=== PATIENT | male | born 1930 | race Caucasian/White ===

== ENCOUNTER 2018-12-14 19:15 | Emergency (ER) | payer MEDICARE, OTHER ==
[2018-12-14] MEDS ORDERED: LIDOCAINE 1%/EPINEPHRINE INJ 20 ML VIAL INJ ONE (19:41)
--- NOTE | 2018-12-14 19:41 | ER Document Report ---
ED General - General Stated Complaint: FALL Time Seen by Provider: 12/14/18 19:26 Primary Care Provider: MICHELLE RG MD [ACTIVE STAFF] - Follow up in 3-5 days Notes: Patient is a 88-year-old male that presents to the emergency department for chief complaint of fall and head injury. Patient reports that he was taking a few steps backward with his walker and went to pivot and his foot got caught in the wheel, and he fell onto his right side, hitting the right side of his head on the counter. Denies loss of consciousness, denies any headache, or neck pain at this time. Denies any numbness, weakness or tingling or visual changes. He denies being on any blood thinners. Denies any other complaints at this time. He denies having any pain. He reports that he does not recall the last time he had a tetanus vaccination. Past Medical History: Parkinson's disease Past Surgical History: Denies any recent or pertinent surgical history Social History: Denies tobacco, alcohol or drug use. Family History: Reviewed and noncontributory for presenting illness Allergies: Reviewed, see documented allergy list. REVIEW OF SYSTEMS: Other than noted above, the 12 point review of systems was reviewed with the patient and were negative, all pertinent findings are included in the HPI. PHYSICAL EXAMINATION: Vital signs reviewed, nursing noted reviewed. GENERAL: Elderly male, no acute distress HEAD: There is a right-sided scalp laceration, measuring approximately 2.6 cm in length, slight oozing of blood, no depressed skull fracture, no other head injuries appreciated. EYES: Eyes appear normal, extraocular movements intact, sclera anicteric, conjunctiva are normal. ENT: nares patent, oropharynx clear without exudates. Moist mucous membranes. NECK: Normal range of motion, supple without lymphadenopathy, no midline tendern ess, no pain with range of motion. LUNGS: Breath sounds clear to auscultation bilaterally and equal. No wheezes rales or rhonchi. HEART: Regular rate and rhythm without murmurs ABDOMEN: Soft, nontender, normoactive bowel sounds. No rebound, guarding, or rigidity. No masses appreciated. EXTREMITIES: Nontender, good range of motion, no pitting or edema. NEUROLOGICAL: No focal neurological deficits. Moves all extremities spontaneously Motor and sensory grossly intact on exam. PSYCH: Normal mood, normal affect. SKIN: Warm, Dry, normal turgor, no rashes or lesions noted on exposed skin TRAVEL OUTSIDE OF THE [place] IN LAST 30 DAYS: No - Related Data Allergies/Adverse Reactions: Penicillins Allergy (Verified 12/14/18 20:14) Past Medical History - Social History Smoking Status: Never Smoker Family History: Reviewed & Not Pertinent Physical Exam - Vital signs Vitals: Temp Pulse Resp BP Pulse Ox 97.6 F 66 18 145/68 H 96 12/14/18 19:47 12/14/18 19:47 12/14/18 19:47 12/14/18 19:47 12/14/18 19:47 Course - Re-evaluation Re-evalutation: Patient seen and examined vital signs reviewed. Laboratory data and/or imaging were ordered as appropriate for the patient's presenting symptoms and complaint, with consideration of any critical or life threatening conditions that may be associated with their obtained history and exam as noted above. Patient was treated with suture repair of his scalp wound, with 7 chris, patient tolerated well Results were reviewed when available and demonstrated negative CT imaging of the head and cervical spine The patient was re-evaluated and was stable and improved Evaluation was most consistent with scalp laceration, closed head injury, fall, patient advised to return in 7 days to have his chris removed. Results were discussed with the patient at this point, after careful consideration I feel that that patient can be discharged from the emergency department, the patient was educated treatments and reasons to return to the emergency department based on their presumed diagnosis as noted above, they were advised to followup with a primary care physician in 2-3 days. Patient was agreeable to plan of care. *Note is created using voice recognition software and may contain spelling, syntax or grammatical errors. Cervical Spine CT 12/14/18 19:42 IMPRESSION: No acute fracture. Severe multilevel cervical spondylosis with mild retrolisthesis of C3 upon C4 and C4 upon C5. TECHNICAL DOCUMENTATION: Quality ID # 436: Final reports with documentation of one or more dose reduction techniques (e.g., Automated exposure control, adjustment of the mA and/or kV according to patient size, use of iterative reconstruction technique) copyright 2011 [employer]- All Rights Reserved Head CT 12/14/18 19:42 IMPRESSION: No acute intracranial abnormality. Mild chronic microvascular ischemic change and generalized atrophy. TECHNICAL DOCUMENTATION: Quality ID # 436: Final reports with documentation of one or more dose reduction techniques (e.g., Automated exposure control, adjustment of the mA and/or kV according to patient size, use of iterative reconstruction technique) copyright 2011 [employer]- All Rights Reserved - Vital Signs Vital signs: Temp Pulse Resp BP Pulse Ox 97.7 F 63 17 171/74 H 97 12/14/18 21:25 12/14/18 21:25 12/14/18 21:25 12/14/18 21:25 12/14/18 21:25 Procedures - Laceration/Wound Repair Right Head Wound length (cm): 2.6 Wound's Depth, Shape: Other - into subcutantous tissues Anesthetic type: 1% Lidocaine w/epi Volume Anesthetic (mLs): 3 Wound explored: Clean Irrigated w/ Saline (mLs): 200 Wound Repaired With: Chris Number of Sutures: 7 Complications: No Discharge - Discharge Clinical Impression: Scalp laceration Qualifiers: Encounter type: initial encounter Qualified Code(s): S01.01XA - Laceration without foreign body of scalp, initial encounter Closed head injury Qualifiers: Encounter type: initial encounter Qualified Code(s): S09.90XA - Unspecified injury of head, initial encounter Fall Qualifiers: Encounter type: initial encounter Qualified Code(s): W19.XXXA - Unspecified fall, initial encounter Condition: Stable Disposition: HOME, SELF-CARE Instructions: Laceration Care ([facility]), Tetanus Immunization Given ([facility]) Additional Instructions: Please keep the wound on your head clean and dry, you may wash normally, but do not scrub your hair, you can use normal shampoo. Pat dry. Please return to the emergency department in 7 days to have your chris removed, they can also be removed at your primary care office if you are able to go to them. Referrals: MICHELLE RG MD [ACTIVE STAFF] - Follow up in 3-5 days
[2018-12-14] MEDS ORDERED: DIPH/PERTUSS(ACELL)/TETANUS VAC/PF 0.5 ML SYR (>=10YO) IM ONE (20:01)
--- NOTE | 2018-12-14 20:21 | RADIOLOGY REPORT (SQ) ---
EXAM DESCRIPTION: CT HEAD WITHOUT IV CONTRAST COMPLETED DATE/TME: 12/14/2018 19:42 CLINICAL HISTORY: 88 years, Male, fall, head injury COMPARISON: None. TECHNIQUE: Noncontrast CT of the head was performed. Coronal and sagittal reformations were created. Images stored on PACS. All CT scanners at this facility use dose modulation, iterative reconstruction, and/or weight based dosing when appropriate to reduce radiation dose to as low as reasonably achievable (ALARA). [facility]: Dose Right [facility]: CareDose [facility]: Dose Right [facility]: Teradose 4D [facility]: [employer] LIMITATIONS: None. FINDINGS: Mild periventricular and patchy subcortical white matter low attenuation is noted. Brain parenchyma is otherwise normal in attenuation. No acute intracranial hemorrhage, mass effect, or extra-axial fluid is seen. Ventricles and sulcal spaces are mildly enlarged. Globes and orbits show no acute abnormality. Paranasal sinuses and mastoid air cells are clear. There are no depressed skull fractures. Calcifications are evident about the parasellar carotid arteries. IMPRESSION: No acute intracranial abnormality. Mild chronic microvascular ischemic change and generalized atrophy. TECHNICAL DOCUMENTATION: Quality ID # 436: Final reports with documentation of one or more dose reduction techniques (e.g., Automated exposure control, adjustment of the mA and/or kV according to patient size, use of iterative reconstruction technique) copyright 2011 [employer]- All Rights Reserved
--- NOTE | 2018-12-14 20:38 | RADIOLOGY REPORT (SQ) ---
EXAM DESCRIPTION: CT CERVICAL SPINE WITHOUT IV CONTRAST COMPLETED DATE/TME: 12/14/2018 19:42 CLINICAL HISTORY: 88 years, Male, fall, head injury COMPARISON: None. TECHNIQUE: Noncontrast CT of the cervical spine was performed. Coronal and sagittal reformations were created. Images stored on PACS. All CT scanners at this facility use dose modulation, iterative reconstruction, and/or weight based dosing when appropriate to reduce radiation dose to as low as reasonably achievable (ALARA). [facility]: Dose Right [facility]: CareDose [facility]: Dose Right [facility]: Teradose 4D [facility]: [employer] LIMITATIONS: None. FINDINGS: Limited evaluation of the posterior fossa structures reveals no suspicious abnormality Occipital condyles are normal. Lateral masses of C1 and C2 align properly. Base and tip of the dens are intact. Craniocervical alignment is maintained. Visualized is mild retrolisthesis of C3 upon C4. Otherwise, severe multilevel intervertebral disc space narrowing is noted throughout the cervical spine, most pronounced spanning C3-C6 where there is severe intervertebral disc space narrowing and anterior/posterior endplate spurring. No acute fracture is identified. Concomitant right uncovertebral joint hypertrophy at C5-C6 contributes to severe right neural foraminal stenosis. Additional right uncovertebral joint hypertrophy at C4-C5 contributes to moderate neural foraminal stenosis. Visualized lung apices are clear. Paravertebral soft tissues show no suspicious findings. Calcifications are evident about the carotid vasculature on the right. IMPRESSION: No acute fracture. Severe multilevel cervical spondylosis with mild retrolisthesis of C3 upon C4 and C4 upon C5. TECHNICAL DOCUMENTATION: Quality ID # 436: Final reports with documentation of one or more dose reduction techniques (e.g., Automated exposure control, adjustment of the mA and/or kV according to patient size, use of iterative reconstruction technique) copyright 2010 [employer]- All Rights Reserved
[2018-12-14 21:33] VITALS: BP 171/74
== END 2018-12-14 21:32 | disposition home or self-care (01) ==
LOC: ER 19:15
PROC: 0HQ0XZZ Repair Scalp Skin, External Approach (ICD-10-PCS; principal; 2018-12-14)
DX: S01.01XA Laceration without foreign body of scalp, initial encounter (principal); S09.90XA Unspecified injury of head, initial encounter; W18.30XA Fall on same level, unspecified, initial encounter; Y93.9 Activity, unspecified; Y92.9 Unspecified place or not applicable; Y99.9 Unspecified external cause status; G20 Parkinson's disease; Z88.0 Allergy status to penicillin; Z23 Encounter for immunization
CPT/HCPCS: 99284; 90471; 12002; 70450; 72125; 90715; J3490

== ENCOUNTER → 2019-05-12 | Outpatient (CLI) | payer MEDICARE, OTHER ==
--- NOTE | 2019-05-12 11:08 | RADIOLOGY REPORT (SQ) ---
EXAM DESCRIPTION: SACRUM AND COCCYX; L SPINE W/FLEX/EXT; T SPINE AP/LAT COMPLETED DATE/TIME: 05/12/2019 10:55 am REASON FOR STUDY: M46.1 Sacroiliities, not elsewhere classified; M54.5 Lowbackpain; M54.6Pain COMPARISON: None. FINDINGS: Two view thoracic spine: Osteopenia and multilevel degenerative disc disease with slight spurring. No significant malalignment. No evidence of fracture or overt bone lesion. Normal soft t issues. Five view lumbosacral spine including obliques: Convex left mild scoliosis. No listhesis. Osteopen ic. Multilevel disc disease and facet arthropathy. No fracture or pars defect. No worrisome bone l esion. Soft tissues unremarkable. Three views sacrum and coccyx: Osteopenic. No fracture or bone lesion. No ankylosis or erosions in the SI joints. Hips show evidence of mild DJD. TECHNICAL DOCUMENTATION: JOB ID: [id number] Reading location - IP/workstation name: [email or web address]
--- NOTE | 2019-05-12 11:08 | RADIOLOGY REPORT (SQ) ---
EXAM DESCRIPTION: SACRUM AND COCCYX; L SPINE W/FLEX/EXT; T SPINE AP/LAT COMPLETED DATE/TIME: 05/12/2019 10:55 am REASON FOR STUDY: M46.1 Sacroiliities, not elsewhere classified; M54.5 Lowbackpain; M54.6Pain COMPARISON: None. FINDINGS: Two view thoracic spine: Osteopenia and multilevel degenerative disc disease with slight spurring. No significant malalignment. No evidence of fracture or overt bone lesion. Normal soft t issues. Five view lumbosacral spine including obliques: Convex left mild scoliosis. No listhesis. Osteopen ic. Multilevel disc disease and facet arthropathy. No fracture or pars defect. No worrisome bone l esion. Soft tissues unremarkable. Three views sacrum and coccyx: Osteopenic. No fracture or bone lesion. No ankylosis or erosions in the SI joints. Hips show evidence of mild DJD. TECHNICAL DOCUMENTATION: JOB ID: [id number] Reading location - IP/workstation name: [email or web address]
--- NOTE | 2019-05-12 11:08 | RADIOLOGY REPORT (SQ) ---
EXAM DESCRIPTION: SACRUM AND COCCYX; L SPINE W/FLEX/EXT; T SPINE AP/LAT COMPLETED DATE/TIME: 05/12/2019 10:55 am REASON FOR STUDY: M46.1 Sacroiliities, not elsewhere classified; M54.5 Lowbackpain; M54.6Pain COMPARISON: None. FINDINGS: Two view thoracic spine: Osteopenia and multilevel degenerative disc disease with slight spurring. No significant malalignment. No evidence of fracture or overt bone lesion. Normal soft t issues. Five view lumbosacral spine including obliques: Convex left mild scoliosis. No listhesis. Osteopen ic. Multilevel disc disease and facet arthropathy. No fracture or pars defect. No worrisome bone l esion. Soft tissues unremarkable. Three views sacrum and coccyx: Osteopenic. No fracture or bone lesion. No ankylosis or erosions in the SI joints. Hips show evidence of mild DJD. TECHNICAL DOCUMENTATION: JOB ID: [id number] Reading location - IP/workstation name: [email or web address]
== END ==
LOC: RAD 09:46
PROVIDERS: ATTEND Physician Assistant Medical
DX: M46.1 Sacroiliitis, not elsewhere classified (principal); M54.5 Low back pain; M16.0 Bilateral primary osteoarthritis of hip; M51.34 Other intervertebral disc degeneration, thoracic region
CPT/HCPCS: 72070; 72114; 72220

== ENCOUNTER 2019-05-25 09:57 | Emergency (ER) | payer MEDICARE, OTHER ==
[2019-05-25 10:15] LABS: ABSOLUTE BASOPHILS # (AUTO) 0.1 10^3/uL (0.0-0.2); ABSOLUTE LYMPHOCYTES (AUTO) 0.7 10^3/uL (0.5-4.7); ABSOLUTE MONOCYTES (AUTO) 0.6 10^3/uL (0.1-1.4); ABSOLUTE NEUT (AUTO) 5.9 10^3/uL (1.7-8.2); BASOPHILS % (AUTO) 0.8 % (0-2); EOSINOPHILS % (AUTO) 0.5 % (0-6); HEMATOCRIT 42.1 % (37.9-51.0); HEMOGLOBIN 14.3 g/dL (13.5-17.0); LYMPHOCYTES % (AUTO) 9.7 % (13-45); MEAN CORPUSCULAR HEMOGLOBIN 31.6 pg (27.0-33.4); MEAN CORPUSCULAR HGB CONC 33.9 g/dL (32.0-36.0); MEAN CORPUSCULAR VOLUME 93 fl (80-97); MONOCYTES % (AUTO) 7.7 % (3-13); PLATELET COUNT 298 10^3/uL (150-450); RED BLOOD COUNT 4.52 10^6/uL (4.35-5.55); RED CELL DISTRIBUTION WIDTH 14.2 % (11.5-14.0); SEGMENTED NEUTROPHILS % (AUTO) 81.3 % (42-78); TOTAL CELLS COUNTED % (AUTO) 100 %; WHITE BLOOD COUNT 7.2 10^3/uL (4.0-10.5)
[2019-05-25 10:33] LABS: INTERNATIONAL RATION (INR) 1.23; PROTHROMBIN TIME 15.6 SEC (11.4-15.4)
[2019-05-25 10:35] LABS: ALBUMIN 4.1 g/dL (3.5-5.0); ALKALINE PHOSPHATASE 82 U/L (38-126); ANION GAP 9 (5-19); ASPARTATE AMINO TRANSFERASE 23 U/L (17-59); BILIRUBIN,DIRECT 0.1 mg/dL (0.0-0.4); BILIRUBIN,TOTAL 0.7 mg/dL (0.2-1.3); BLOOD UREA NITROGEN 33 mg/dL (7-20); CALCIUM 9.8 mg/dL (8.4-10.2); CARBON DIOXIDE 29 mmol/L (22-30); CHLORIDE 106 mmol/L (98-107); GLUCOSE 98 mg/dL (75-110); POTASSIUM 4.6 mmol/L (3.6-5.0)
--- NOTE | 2019-05-25 10:48 | RADIOLOGY REPORT (SQ) ---
EXAM DESCRIPTION: CT HEAD WITHOUT COMPLETED DATE/TIME: 05/25/2019 10:31 am REASON FOR STUDY: fall with head laceration COMPARISON: CT brain 12/14/2018 TECHNIQUE: Axial images acquired through the brain without intravenous contrast. Images reviewed wi th bone, brain and subdural windows. Additional sagittal and coronal reconstructions were generated. Images stored on PACS. All CT scanners at this facility use dose modulation, iterative reconstruction, and/or weight based d osing when appropriate to reduce radiation dose to as low as reasonably achievable (ALARA). [facility]: Dose Right [facility]: CareDose [facility]: Dose Right [facility]: Teradose 4D [facility]: [employer] RADIATION DOSE: CT Rad equipment meets quality standard of care and radiation dose reduction techniq ues were employed. CTDIvol: 53.2 mGy. DLP: 1070 mGy-cm. mGy. LIMITATIONS: Motion artifact through this study FINDINGS: Motion artifact throughout the study. On images without motion, there is no gross CT evid ence of acute large territory ischemic change, acute intracranial hemorrhage, mass effect, or midline shift. IMPRESSION: Motion artifact. No gross acute findings EVIDENCE OF ACUTE STROKE: NO. COMMENT: Quality ID # 436: Final reports with documentation of one or more dose reduction techniques (e.g., Automated exposure control, adjustment of the mA and/or kV according to patient size, use of iterative reconstruction technique) TECHNICAL DOCUMENTATION: JOB ID: [id number] [employer]- All Rights Reserved Reading location - IP/workstation name: [email or web address]
--- NOTE | 2019-05-25 10:51 | RADIOLOGY REPORT (SQ) ---
EXAM DESCRIPTION: CT CERVICAL SPINE WITHOUT COMPLETED DATE/TIME: 05/25/2019 10:31 am REASON FOR STUDY: fall COMPARISON: CT cervical spine 12/14/2018 TECHNIQUE: Axial images acquired through the cervical spine without intravenous contrast. Images re viewed with lung, soft tissue and bone windows. Reconstructed coronal and sagittal MPR images review ed. Images stored on PACS. All CT scanners at this facility use dose modulation, iterative reconstruction, and/or weight based d osing when appropriate to reduce radiation dose to as low as reasonably achievable (ALARA). [facility]: Dose Right [facility]: CareDose [facility]: Dose Right [facility]: Teradose 4D [facility]: [employer] RADIATION DOSE: CT Rad equipment meets quality standard of care and radiation dose reduction techniq ues were employed. CTDIvol: 12.2 mGy. DLP: 285 mGy-cm. mGy. LIMITATIONS: None. FINDINGS: ALIGNMENT: Anatomic. MINERALIZATION: Normal. VERTEBRAL BODIES: No fractures or dislocation. DISCS: Multilevel disc space narrowing with osteophytes. FACETS, LATERAL MASSES, POSTERIOR ELEMENTS: Facet arthropathy. No fractures. No dislocation. No ac sandrine findings. HARDWARE: None in the spine. VISUALIZED RIBS: No fractures. LUNG APICES AND SOFT TISSUES: No significant or acute findings. OTHER: No other significant finding. IMPRESSION: CHRONIC DEGENERATIVE CHANGES. NO ACUTE FINDINGS. TECHNICAL DOCUMENTATION: JOB ID: [id number] Quality ID # [id number]: Final reports with documentation of one or more dose reduction techniques (e.g., Au tomated exposure control, adjustment of the mA and/or kV according to patient size, use of iterative reconstruction technique) 2010 [email or web address]- All Rights Reserved Reading location - IP/workstation name: [facility]
--- NOTE | 2019-05-25 11:06 | RADIOLOGY REPORT (SQ) ---
EXAM DESCRIPTION: HIP RIGHT AP/LATERAL COMPLETED DATE/TIME: 05/25/2019 10:48 am REASON FOR STUDY: fall with head lac and right hip tenderness COMPARISON: None. NUMBER OF VIEWS: Two views. TECHNIQUE: AP pelvis and additional frog-leg view of the right hip. LIMITATIONS: None. FINDINGS: MINERALIZATION: Normal. RIGHT HIP: No fracture or dislocation. No worrisome bone lesions. LEFT HIP: No fracture or dislocation. No worrisome bone lesions. PUBIS AND ISCHIUM: No fracture. PELVIS: No fracture. SACRUM: No fracture or dislocation. No worrisome bone lesions. LOWER LUMBAR SPINE: Disc space loss of height SOFT TISSUES: No findings. OTHER: No other significant finding. IMPRESSION: NEGATIVE STUDY OF THE RIGHT HIP. NO RADIOGRAPHIC EVIDENCE OF ACUTE INJURY. TECHNICAL DOCUMENTATION: JOB ID: [id number] [employer]- All Rights Reserved Reading location - IP/workstation name: [facility]
[2019-05-25] MEDS ORDERED: LIDOCAINE 1%/EPINEPHRINE INJ 20 ML VIAL INJ ONE (11:16)
--- NOTE | 2019-05-25 12:27 | ER Document Report ---
Entered by TORY GOMEZ SCRIBE 05/25/19 1116 Acting as scribe for:SAUD VINCENT MD ED Fall - General Chief Complaint: Fall Injury Stated Complaint: FALL/HIP INJURY Time Seen by Provider: 05/25/19 11:07 Primary Care Provider: NAOMI RAZA MD [Primary Care Provider] - Follow up as needed Mode of Arrival: Medic Information source: Patient, Relative Notes: 88-year-old male that presents to the emergency department today for complaints of a fall just prior to arrival. Patient states he had just stood up to put his belt on when the fall occurred. Patient states he "fell flat on his face". Relative at bedside states the patient has been having frequent falls over the last few days. Patient complains of back pain which is chronic, bilateral hip pain, and lacerations to his face and nose. Patient has a cough but he states this is his chronic cough. C-collar in place. Pertinent PMHx/PSHx: On pain management for chronic back pain. Parkinson's. Chronic cough. PCP: Dr. Naomi Raza TRAVEL OUTSIDE OF THE [place] IN LAST 30 DAYS: No - Related data Allergies/Adverse Reactions: Penicillins Allergy (Verified 12/23/18 07:10) Past Medical History - General Information source: Relative, [facility] Records - Social History Smoking Status: Former Smoker Frequency of alcohol use: None Drug Abuse: None Lives with: Family Family History: Reviewed & Not Pertinent Patient has suicidal ideation: No Patient has homicidal ideation: No - Past Medical History Cardiac Medical History: Reports: Hx Hypercholesterolemia, Hx Hypertension Musculoskeletal Medical History: Reports Hx Arthritis Surgical Hx: Negative Review of Systems - Review of Systems Constitutional: See HPI, Other - Fall EENT: No symptoms reported Cardiovascular: No symptoms reported Respiratory: See HPI, Cough Gastrointestinal: No symptoms reported Genitourinary: No symptoms reported Male Genitourinary: No symptoms reported Musculoskeletal: See HPI, Back pain, Joint pain Skin: See HPI, Lesions Hematologic/Lymphatic: No symptoms reported Neurological/Psychological: No symptoms reported -: Yes All other systems reviewed and negative Physical Exam - Vital signs Vitals: Temp Pulse Resp BP Pulse Ox 97.6 F 63 18 153/89 H 92 05/25/19 10:05 05/25/19 10:05 05/25/19 10:05 05/25/19 10:05 05/25/19 10:05 - Notes Notes: Physical Exam: General: Alert, appears at baseline according to family. HEENT: Normocephalic. PERRL. Extraocular movements intact. Oropharynx clear. Multiple abrasions and lacerations, see repair procedure note and skin exam. Neck: Supple. Non-tender. Collar removed after negative CT scan obtained. Respiratory: No respiratory distress. Rhonchi with forced cough. Ribs are not tender to palpate. Cardiovascular: Regular rate and rhythm. Abdominal: Normal Inspection. Non-tender. No distension. Normal Bowel Sounds. Back: No gross abnormalities. Generally tender with palpation which is chronic. The patient points to his right posterior iliac crest region as the area that he hurt when he fell. Extremities: Moves all four extremities. Upper extremities: Normal inspection. Normal ROM. Lower extremities: Normal inspection. Trace edema on the right, none on the left. Normal ROM. Palpating and manipulating the hips is not tender. Neurological: Normal cognition. AAOx4. Normal speech. Psychological: Normal affect. Normal Mood. Skin: 2 cm irregular crushtype laceration to the right medial supraorbital area. There is a 2 cm laceration over the right lateral portion of the zygomatic arch. There are two 1cm longitudinal nose lacerations over the proximal anterior nose. Course - Re-evaluation Re-evalutation: 05/25/19 12:30 PROCEDURE: The right supraorbital and zygomatic lacerations were prepped with Shur- Clens. They were anesthetized with a total of 3 mL's 1% lidocaine with epi local. Each wound was minimally debrided. Each wound was irrigated with 20 mL's normal saline via syringe and 25-gauge needle for pressure. The forehead wound was closed with 7 simple 5-0 Ethilon sutures. The zygomatic arch laceration was closed with 4 simple 5-0 Ethilon sutures. The nose was closed with Steri-Strips by the PCT. - Vital Signs Vital signs: Temp Pulse Resp BP Pulse Ox 97.6 F 63 18 153/89 H 92 05/25/19 10:05 05/25/19 10:05 05/25/19 10:05 05/25/19 10:05 05/25/19 10:05 - Laboratory Result Diagrams: 05/25/19 10:05 05/25/19 10:05 Laboratory results interpreted by me: 05/25/19 05/25/19 05/25/19 10:05 10:05 10:05 RDW 14.2 H Lymph % (Auto) 9.7 L Seg Neutrophils % 81.3 H PT 15.6 H BUN 33 H Creatinine 1.27 H Est GFR (MDRD) Non-Af 54 L - Diagnostic Test Radiology reviewed: Image reviewed, Reports reviewed - CT scan of the head and n rahul show chronic changes with nothing acute. X-rays of the hips do not show fractures, but does show chronic degenerative changes. Discharge - Discharge Clinical Impression: Frequent falls Fall Qualifiers: Encounter type: initial encounter Qualified Code(s): W19.XXXA - Unspecified fall, initial encounter Laceration of forehead Qualifiers: Encounter type: initial encounter Qualified Code(s): S01.81XA - Laceration without foreign body of other part of head, initial encounter Facial laceration Qualifiers: Encounter type: initial encounter Qualified Code(s): S01.81XA - Laceration without foreign body of other part of head, initial encounter Chronic back pain Qualifiers: Back pain location: thoracic back pain Back pain laterality: midline Qualified Code(s): M54.6 - Pain in thoracic spine Condition: Stable Disposition: HOME, SELF-CARE Additional Instructions: Facial Laceration A laceration on the face usually heals quickly. Our treatment goal will be to avoid an unsightly scar or stitch-amin. Your cut has been closed with the best techniques to avoid scarring, but a great deal depends on how well you protect the laceration -- and on your inherited tendency to scar. As facial cuts are usually caused by a blunt injury, it's usually best to rest for a day to avoid swelling. Do not allow any bumping or rubbing of the area. Keep the stitches dry. Follow the treatment plan the doctor has discu ssed with you and DO NOT DELAY getting the stitches out. Once stitches are removed, continue to protect the area from trauma and sunlight (use a sunscreen) for about six months. If any signs of infection occur (swelling, redness, increasing tenderness, red streaks, tender lumps in the neck or near the ear on the side of the laceration, or fever), see the doctor immediately. Use ice packs on the forehead and face laceration to help reduce swelling. Do not allow the Steri-Strips on the nose to get wet. Keep the sutured wounds clean and dressed with bacitracin ointment. Return in 1 week to have the sutures removed. Return sooner if any signs of infection. RETURN TO THE EMERGENCY ROOM IF ANY NEW OR WORSENING SYMPTOMS. Referrals: NAOMI RAZA MD [Primary Care Provider] - Follow up as needed Scribe Attestation: 05/25/19 12:35 I personally performed the services described in the documentation, reviewed and edited the documentation which was dictated to the scribe in my presence, and it accurately records my words and actions. I personally performed the services described in the documentation, reviewed and edited the documentation which was dictated to the scribe in my presence, and it accurately records my words and actions.
[2019-05-25] MEDS ORDERED: OXYCODONE-ACETAMINOPHEN 5-325 MG TABLET PO ONE (13:29)
[2019-05-25 13:47] VITALS: BP 134/75
== END 2019-05-25 13:57 | disposition home or self-care (01) ==
LOC: ER 09:57
DX: S79.912A Unspecified injury of left hip, initial encounter (principal); S01.81XA Laceration without foreign body of other part of head, initial encounter; M54.6 Pain in thoracic spine; R05 Cough; W19.XXXA Unspecified fall, initial encounter; E78.00 Pure hypercholesterolemia, unspecified; I10 Essential (primary) hypertension; G20 Parkinson's disease; Z91.81 History of falling
CPT/HCPCS: 36415; 85025; 85610; 80053; 73502; 70450; 72125; 12013; J3490; A9270; 99284

== ENCOUNTER 2019-06-01 14:02 | Emergency (ER) | payer MEDICARE, OTHER ==
--- NOTE | 2019-06-01 14:24 | ER Document Report ---
ED Medical Screen (RME) - General Chief Complaint: Low Back Pain Stated Complaint: BACK PAIN Time Seen by Provider: 06/01/19 14:16 Primary Care Provider: NAOMI DURAN MD [Primary Care Provider] - Follow up as needed Mode of Arrival: Medic Information source: Relative Notes: 88-year-old male presents to ED for complaint of increasing low back pain. Son and fianc are at the bedside and stated he is not safe to be at home anymore. States he is falling all the time. States that he is complaining of pain in his lower back and is not able to walk. He states he is not able to care for himself and needs to be in a facility where someone will take care of him. They state first he needs to be checked it to see if his current infection somewhere. Patient is alert oriented and answering questions appropriately. He states he is ready to go into a facility if there is one available in a while to get him in there. I have greeted and performed a rapid initial assessment of this patient. A comprehensive ED assessment and evaluation of the patient, analysis of test results and completion of medical decision making process will be conducted by an additional ED providers. TRAVEL OUTSIDE OF THE [place] IN LAST 30 DAYS: No - Related Data Allergies/Adverse Reactions: Penicillins Allergy (Verified 12/23/18 07:10) Past Medical History - Past Medical History Cardiac Medical History: Reports: Hx Hypercholesterolemia, Hx Hypertension Renal/ Medical History: Denies: Hx Peritoneal Dialysis Musculoskeltal Medical History: Reports Hx Arthritis Doctor's Discharge - Discharge Referrals: NAOMI DURAN MD [Primary Care Provider] - Follow up as needed
[2019-06-01 15:45] LABS: HEMATOCRIT 39.9 % (37.9-51.0); HEMOGLOBIN 13.8 g/dL (13.5-17.0); MEAN CORPUSCULAR HEMOGLOBIN 32.1 pg (27.0-33.4); MEAN CORPUSCULAR HGB CONC 34.5 g/dL (32.0-36.0); MEAN CORPUSCULAR VOLUME 93 fl (80-97); PLATELET COUNT 261 10^3/uL (150-450); RED BLOOD COUNT 4.29 10^6/uL (4.35-5.55); RED CELL DISTRIBUTION WIDTH 13.8 % (11.5-14.0); WHITE BLOOD COUNT 11.7 10^3/uL (4.0-10.5)
[2019-06-01 16:02] LABS: ALBUMIN 3.7 g/dL (3.5-5.0); ALKALINE PHOSPHATASE 86 U/L (38-126); ANION GAP 7 (5-19); ASPARTATE AMINO TRANSFERASE 33 U/L (17-59); BILIRUBIN,DIRECT 0.1 mg/dL (0.0-0.4); BILIRUBIN,TOTAL 0.8 mg/dL (0.2-1.3); BLOOD UREA NITROGEN 34 mg/dL (7-20); CALCIUM 9.7 mg/dL (8.4-10.2); CARBON DIOXIDE 29 mmol/L (22-30); CHLORIDE 106 mmol/L (98-107); GLUCOSE 105 mg/dL (75-110); POTASSIUM 4.5 mmol/L (3.6-5.0); TOTAL PROTEIN 6.4 g/dL (6.3-8.2)
[2019-06-01 16:13] LABS: ABSOLUTE LYMPHOCYTES# (MANUAL) 0.7 10^3/uL (0.5-4.7); ABSOLUTE MONOCYTES # (MANUAL) 0.8 10^3/uL (0.1-1.4); BASOPHILS % (MANUAL) 0 % (0-2); EOSINOPHILS % (MANUAL) 0 % (0-6); LYMPHOCYTES % (MANUAL) 6 % (13-45); MONOCYTES % (MANUAL) 7 % (3-13); SEGMENTED NEUTROPHILS % (MAN) 87 % (42-78); TOTAL CELLS COUNTED 100
[2019-06-01 16:14] LABS: PLATELET COMMENT ADEQUATE
--- NOTE | 2019-06-01 16:38 | ER Document Report ---
ED General - General Chief Complaint: Low Back Pain Stated Complaint: BACK PAIN Time Seen by Provider: 06/01/19 14:16 Primary Care Provider: NAOMI DURAN MD [Primary Care Provider] - Follow up as needed Mode of Arrival: Medic TRAVEL OUTSIDE OF THE [place] IN LAST 30 DAYS: No - HPI Notes: 58-year-old white male who has a reported diagnosis of Parkinson's disease since about 2 years ago, for which he has been on antiparkinsonian meds for that time, hyperlipidemia no history of hypertension, chronic low back pain prior pain management patient but not more recently on any opioids for a while prior signs fianc he was only getting injections in his low back and the last opiate of any sort was a while ago and it was just Tylenol 3. But he comes in today with family for fairly marketed decline in his baseline functioning in the last weeks. He has had a number of falls during this. The very last on 1116 a few days ago for which he had required sutures here in our ED on his forehead and cheek but had negative musculoskeletal and CT head and C-spine work-up for any acute traumatic injuries but son and his fiance say patient really has not wa nted to get up out of his electric wheelchair for a number of days now and that is not eating well. They deny any falls since his last visit in the ED but he almost fell today in the parking lot, so he needs significant amount assistance walking. A few weeks ago he was driving son says and living alone. Patient sister was helping manage all his medications, but there were no new medications. He was on donepezil, statin, and alpha 1 antagonist for BPH. They say he "has a history of aspiration" he cannot take pills well and they think he sounded like he has a very wet cough and they worried that he is aspirated "fluid into his lungs". They deny that he said any trouble breathing. He is not on any aspirin or other blood thinning medications. No vomiting. They say he has continued to drink water but fianc of son has to sit there with them and give him slow sips. They deny he has had any skin breakdown that they know of and they have been keeping him in "diapers". Since the ER visit on the physical therapy and Occupational Therapy have been coming out to the home. Son says that he has talked with his father about it being difficult for him to take care of him now that he is having trouble doing many of his daily activities and father says he would like to go to a facility with nursing care. He has no advanced directives per son. - Related Data Allergies/Adverse Reactions: Penicillins Allergy (Verified 12/23/18 07:10) Past Medical History - General Information source: Relative - Social History Smoking Status: Current Some Day Smoker Chew tobacco use (# tins/day): No Frequency of alcohol use: None Drug Abuse: None Lives with: Alone - therefore family has been coming over every dayNow the last few weeks difficulty with some in the last few days needing assistance with all activities of daily living. Family History: Reviewed & Not Pertinent Patient has suicidal ideation: No Patient has homicidal ideation: No - Past Medical History Cardiac Medical History: Reports: Hx Hypercholesterolemia, Hx Hypertension Endocrine Medical History: Reports: Other - Parkinson's disease, unclear details of diagnosis but for 2 years. Renal/ Medical History: Reports: Hx Benign Prostatic Hyperplasia. Denies: Hx Peritoneal Dialysis, Hx Renal Insufficiency Malignancy Medical History: Denies None Musculoskeletal Medical History: Reports Hx Arthritis, Reports Other - Chronic low back pain prior pain management patient Psychiatric Medical History: Denies: None Infectious Medical History: Reports: Other - No known history of recurrent infections and no recent need for antibiotics Past Surgical History: Reports: None Review of Systems - Review of Systems Constitutional: Weakness, Weight loss. denies: Chills, Diaphoresis, Fever EENT: Difficulty swallowing. denies: Ear discharge, Nose discharge, Throat pain, Dental problem Cardiovascular: denies: Chest pain, Dyspnea, Syncope, Dizziness, Edema, Paroxysmal Nocturnal Dysp Respiratory: Cough. denies: Hurts to breathe, Short of breath, Sputum, Wheezing Gastrointestinal: Poor appetite, Poor fluid intake. denies: Abdomen distended, Abdominal pain, Diarrhea, Nausea, Vomiting, Constipation Genitourinary: denies: Burning, Frequency, Flank pain, Hematuria, Urgency Musculoskeletal: Back pain, Neck pain, Other Neurological/Psychological: Confusion, Gait changes. denies: Hallucinations, Seizure, Lost consciousness, Headaches, Tremor Physical Exam - Vital signs Vitals: Temp BP Pulse Ox 97.8 F 102/66 94 06/01/19 19:01 06/01/19 19:01 06/01/19 19:01 - Notes Notes: ___Gen:___ Accompanied by son and son's magda. very frail appearing older white male, with extremity and central/temporal muscle atrophy. no open wounds. good hygiene. VS wnl at time of triage and in my exam. NAD or inc WOB. +Alert, +interactive/cooperative following commands. ___HEENT:___ stitches on forehead and cheek. no periorbital ecchymoses or other ecchymoses on the head scalp. No nasal discharge midline septum no facial instability or dental malalignment (dentures intact), no gross ocular discharge, conjunctival injection/pallor, or sleral icterus. Ext ears w/o deformity/otorrhea. Nares patent w/o (bloody) discharge. No stridor. No difficulty controlling secretions. Mouth/oropharynx musosa is dry but w/o de formity/edema/lesions. ___Neck:___Very thin able to easily see external vessels sternocleidomastoid given lack of subcutaneous tissue. Able to laterally rotate in both directions and has some limit in his extension but initiates both extension and flexion. No midline cervical spine tenderness deformity step-offs. No overlying skin changes does have right submandibular pain. No masses there are no intraoral masses, no carotid thrills or bruits bilaterally. N No gross deformity, masses, or skin changes. No palpable masses or TMG or gross LAD in cervical/submental/post-auricular zones. ___Chest:___ No inc labor symmetric b/l chest rise w/ spontaneous respirations at rate WNL. On auscultation no gross WRR or focal findings. +symmetric full BS heard all post/lateral/ant lung diallo. ___CV:___ All ext WWP, pulses symmetric RRR easily palpable and symmetric at distal UE/LE. No peripheral/truncal edema or color changes to suggest PVD. No JVD w/ HOB @ 45deg. Quiet precordium w/o heaves/lifts. On auscultation no gross MRG. ___MSK:___Left dorsum of foot is swollen compared to right no ankle effusion or pain with passive ankle plantar or dorsal flexion, no overlying skin changes or warmth thorough MSK exam performed. No long bone tenderness deformities, no facial or jaw tenderness or deformity, no sternal or clavicle or shoulder elbow or wrist tenderness deformity. No pubic symphysis or left or right hip tenderness or deformity at the iliac crest which is easily palpable given patient's body habitus. + + Pain on passive hip external rotation and internal rotation at the right, but no instability of the joint. No knee deformities. Examined specifically sacral and back and there is no evidence of any skin breakdown ___Abd:___ Benign exam. No distention/color changes/obvious masses. BS present on auscultation. Nontender to light/deep palpation in all 4 quadrants, no palpable masses or OMG. ___GU:___ No suprapubic distention or ttp. Clear urine per specimen container. No gross ttp or palpable masses at CVA or inguinal regions b/l. ___Skin:___Fragile appearing, but besides forehead and cheek lacerations is intact, No obvious rashes, skin breakdown/wounds or color changes. ___Neuro:___ Alert interactive, but is inattentive is able to focus on the question about any pain he is having or that he would like some pain medicine able to twist over in the bed for me and follow commands to examine his musculoskeletal and strength in bilateral upper and lower extremities but strength is diminished symmetrically in the upper extremities but he can resist gravity, in the lower extremities he has difficulty resisting gravity at the hip flexors. calm cooperative, SULLIVAN w/ intention. No gross CN deficits. Strength symmetric 5/5 in upper/lower major mm groups tested. Sensation to light touch grossly intact/symmetric distal UE/LE. ___Psych:___Affect is sad flat but no distress or anxiety very cooperative calm +Good hygiene. No apparent responses to int AVH/stimuli. Course - Vital Signs Vital signs: Temp Pulse Resp BP Pulse Ox 97.8 F 16 143/69 H 96 06/01/19 19:01 06/01/19 23:01 06/01/19 23:01 06/01/19 23:01 - Laboratory Result Diagrams: 06/01/19 15:34 06/01/19 15:34 Laboratory results interpreted by me: 06/01/19 06/01/19 06/01/19 15:34 15:34 15:34 WBC 11.7 H RBC 4.29 L Seg Neuts % (Manual) 87 H Lymphocytes % (Manual) 6 L Abs Neuts (Manual) 10.2 H BUN 34 H Est GFR (MDRD) Non-Af 56 L Creatine Kinase 592 H Urine Protein 06/01/19 19:50 WBC RBC Seg Neuts % (Manual) Lymphocytes % (Manual) Abs Neuts (Manual) BUN Est GFR (MDRD) Non-Af Creatine Kinase Urine Protein 30 H 06/01/19 23:39 Labs show a leukocytosis with a left shift otherwise CBC was within normal limits and otherwise his renal function is currently intact his CK level though prior to fluids here was 595 I will order a future CK for 1 AM and that will be after a liter of LR to assess if he has pending rhabdomyolysis since he was not mobile for at least a day and had significant decline in mobility over the last few weeks his urinalysis did not show overt infection at all - Diagnostic Test Radiology results interpreted by me: 06/01/19 23:44 Ordered right hip x-rays since he was having pain with passive internal and external rotation. After I signed patient out I did also order a ankle x-ray since there was some swelling there mention in physical exam. Currently hospitalist cannot find reason for medical admission, and I do agree I do not have any source of infection or other process right now that needs intervention we have agreed to family to keep him here overnight and social work will see him in the morning Dr. Portillo will follow up for his repeat CK level is if we need to consider rhabdomyolysis still. And follow-up the final hip x-ray reports and follow-up if he had improved pain with the medications given. Discharge - Discharge Clinical Impression: Frailty, Multiple falls, Hip pain, right Condition: Poor Disposition: OTHER Referrals: NAOMI DURAN MD [Primary Care Provider] - Follow up as needed
[2019-06-01 20:00] LABS: APPEARANCE,URINE CLEAR; BILIRUBIN,URINE NEGATIVE (NEGATIVE); COLOR,URINE YELLOW; GLUCOSE, URINE NEGATIVE (NEGATIVE); KETONES,URINE NEGATIVE (NEGATIVE); PROTEIN,URINE 30 mg/dL (NEGATIVE); URINE SPECIFIC GRAVITY 1.019; UROBILINOGEN,URINE NEGATIVE mg/dL (<2.0)
[2019-06-01] MEDS ORDERED: ACETAMINOPHEN 325 MG TABLET PO ONE (20:43)
[2019-06-01] MEDS ORDERED: OXYCODONE HCL IR 5 MG TABLET PO ONE (21:06)
--- NOTE | 2019-06-01 21:19 | RADIOLOGY REPORT (SQ) ---
EXAM DESCRIPTION: [facility]: XR HIP 2 OR MORE VIEWS Views: 2 CLINICAL HISTORY: 88 years Male, pain with ext rotation fall few days ago COMPARISON: 05/25/2019 FINDINGS: Negative for acute fracture, dislocation, or radiopaque foreign body. Degenerative changes are partially visualized in the lower lumbar spine. Pelvic alignment is anatomic. There is scattered contrast material in the visualized portion of the colon. IMPRESSION: 1. No acute findings.
--- NOTE | 2019-06-01 21:46 | RADIOLOGY REPORT (SQ) ---
EXAM DESCRIPTION: XR CHEST 1 VIEW COMPLETED DATE/TME: 06/01/2019 21:09 CLINICAL HISTORY: 88 years, Male, history of aspiration recently, cough COMPARISON: None. NUMBER OF VIEWS: TECHNIQUE: LIMITATIONS: None. FINDINGS: There is emphysema. No evidence of pulmonary infiltrate or pleural effusion. The heart and mediastinum are unremarkable. Pulmonary vascularity appears normal. There are atherosclerotic changes and tortuosity of the thoracic aorta. IMPRESSION: Emphysema. copyright 2010 [employer]- All Rights Reserved
[2019-06-01] MEDS ORDERED: RINGERS SOLUTION,LACTATED 1,000 ML IV ONE (22:02)
[2019-06-01] MEDS ORDERED: MORPHINE SULFATE 10 MG/ML INJ IV ONE (22:55)
--- NOTE | 2019-06-01 23:43 | RADIOLOGY REPORT (SQ) ---
CT HEAD WITHOUT IV CONTRAST EXAM DATE: 06/01/2019 10:56 PM BUILDING SERVICES SUPERVISOR HISTORY: Difficulty swallowing, fall, weakness. COMPARISON: None. TECHNIQUE: CT scan of the brain without IV contrast. This exam was performed according to our departmental dose-optimization program, which includes automated exposure control, adjustment of the mA and/or kV according to patient size and/or use of iterative reconstruction technique. FINDINGS: There are scattered areas of hypoattenuation within the periventricular white matter, which likely represent chronic microvascular ischemia. No evidence of acute infarction, intracranial hemorrhage, extra-axial fluid collection, or midline shift. No air-fluid levels are seen in the paranasal sinuses to suggest acute sinusitis. No depressed skull fracture. IMPRESSION: 1. No acute intracranial findings. 2. Senescent changes with chronic microvascular ischemia.
--- NOTE | 2019-06-01 23:59 | RADIOLOGY REPORT (SQ) ---
CT LOWER EXTREMITY WITHOUT IV CONTRAST EXAM DATE: 06/01/2019 10:56 PM REINFORCING STEEL ERECTOR HISTORY: Right hip pain COMPARISON: None. TECHNIQUE: CT scan of the right hip without IV contrast. This exam was performed according to our departmental dose-optimization program, which includes automated exposure control, adjustment of the mA and/or kV according to patient size and/or use of iterative reconstruction technique. FINDINGS: No acute fracture or dislocation is seen of the right hip. There are mild degenerative changes with os acetabula. The visualized intrapelvic structures demonstrate no acute findings. The muscles and tendons of the right hip are preserved. The right sacroiliac joint is preserved. IMPRESSION: No acute fracture of the right hip.
--- NOTE | 2019-06-02 | RADIOLOGY REPORT (SQ) ---
2 VIEWS OF RIGHT ANKLE EXAM DATE: 06/01/2019 11:23 PM AUTOMOTIVE QUALITY MANAGER HISTORY: Swelling foot/ankle, left heel pain . COMPARISON: None. FINDINGS: The ankle mortise is preserved on these nonstress views. No acute fracture is seen. There is mild surrounding soft tissue swelling. There are severe degenerative changes throughout the midfoot with complete joint space loss and osteophytosis. Generalized osteopenia is present. Vascular calcifications are present. IMPRESSION: 1. No acute fracture or malalignment. 2. Degenerative changes throughout the midfoot.
--- NOTE | 2019-06-02 05:22 | ER Document Report ---
Doctor's Note Notes: 06/02/19 05:21 Patient was checked out to this MD by Dr. Bales at 0200 hrs. This MD ordered a head CT and a right hip CT because of the patient's complaints of difficulty swallowing and persistent right hip pain. Both CTs were unremarkable. Patient is currently awaiting social work consult that is scheduled to happen later this morning.
--- NOTE | 2019-06-02 11:36 | ER Document Report ---
Doctor's Note Notes: 06/02/19 11:34 I had a long discussion with 3 of the 4 children. The most reasonable plan we could come up with is for 1 of them to stay with him at all times to function as an in-home health aide until a permanent disposition can be found. He is to be taken to his primary care provider tomorrow to start the process while other family members will go to [facility], [facility], [facility] and any other possible long-term care facilities to obtain information packets. The sutures that I placed in his face on 05/25/2019 look good, the wounds are healed, there is no swelling or erythema. Sutures will be removed on this visit today.
[2019-06-02 12:09] VITALS: BP 133/66
== END 2019-06-02 12:08 | disposition home or self-care (01) ==
LOC: ER 14:02
DX: R54 Age-related physical debility (principal); M25.551 Pain in right hip; M54.5 Low back pain; R13.10 Dysphagia, unspecified; Z91.81 History of falling; R26.2 Difficulty in walking, not elsewhere classified; F17.200 Nicotine dependence, unspecified, uncomplicated; E78.00 Pure hypercholesterolemia, unspecified; I10 Essential (primary) hypertension; G20 Parkinson's disease; Z88.0 Allergy status to penicillin
CPT/HCPCS: 99284; 96361; 96374; 36415; 82550; 83690; 85025; 83874; 80053; 81001; 73610; 71045; 73502; 70450; 73700; J2270; J7120

== ENCOUNTER 2019-06-04 10:09 | Emergency (ER) | payer MEDICARE, OTHER ==
[2019-06-04 10:20] VITALS: BP 102/57
[2019-06-04] MEDS ORDERED: OXYCODONE-ACETAMINOPHEN 5-325 MG TABLET PO ONE (10:37)
--- NOTE | 2019-06-04 10:40 | ER Document Report ---
ED General - General Chief Complaint: Rib Pain Stated Complaint: FALL/RIB PAIN Time Seen by Provider: 06/04/19 10:27 Primary Care Provider: NAOMI DURAN MD [Primary Care Provider] - Follow up as needed Notes: 88-year-old male with history of Parkinson's disease presents with fall yesterday onto left ribs. Patient has been complaining of left rib pain since. Patient denies any head injury or LOC. Patient has been seen at this ER multiple times in the past 2 weeks for falls due to Parkinson's. Patient has therapy son states that does not seem to be helping. Son states he and his sister take turns staying with patient. TRAVEL OUTSIDE OF THE [place] IN LAST 30 DAYS: No - Related Data Allergies/Adverse Reactions: Penicillins Allergy (Verified 12/23/18 07:10) Past Medical History - Social History Smoking Status: Never Smoker Chew tobacco use (# tins/day): No Frequency of alcohol use: None Drug Abuse: None Family History: Reviewed & Not Pertinent Patient has suicidal ideation: No Patient has homicidal ideation: No - Past Medical History Cardiac Medical History: Reports: Hx Hypercholesterolemia, Hx Hypertension Renal/ Medical History: Reports: Hx Benign Prostatic Hyperplasia. Denies: Hx Peritoneal Dialysis, Hx Renal Insufficiency Musculoskeletal Medical History: Reports Hx Arthritis Review of Systems - Review of Systems Notes: Constitutional: Negative for fever. HENT: Negative for sore throat. Eyes: Negative for visual changes. Cardiovascular: Negative for chest pain. Respiratory: Negative for shortness of breath. Gastrointestinal: Negative for abdominal pain, vomiting or diarrhea. Genitourinary: Negative for dysuria. Musculoskeletal: Positive for left rib pain. Negative for back pain. Skin: Negative for rash. Neurological: Negative for headaches, weakness or numbness. 10 point ROS negative except as marked above and in HPI. Physical Exam - Vital signs Vitals: Pulse Resp BP Pulse Ox 59 L 18 102/57 L 97 06/04/19 10:18 06/04/19 10:18 06/04/19 10:18 06/04/19 10:18 - Notes Notes: GENERAL: Well-appearing, well-nourished and in no acute distress. HEAD: Atraumatic, normocephalic. EYES: Extraocular movements intact, sclera anicteric, conjunctiva are normal. NECK: Normal range of motion, supple without lymphadenopathy or JVD. LUNGS: Breath sounds clear to auscultation bilaterally and equal. No wheezes rales or rhonchi. CHEST: Tenderness to lower anterior left rib. No contusion or deformity noted. HEART: Regular rate and rhythm without murmurs, rubs or gallops. ABDOMEN: Soft, nontender. No guarding, no rebound. No masses appreciated. EXTREMITIES: Normal range of motion, no pitting or edema. No clubbing or cyanosis. NEUROLOGICAL: Cranial nerves II through XII grossly intact. Normal speech. PSYCH: Normal mood, normal affect. SKIN: Warm, Dry, normal turgor, no rashes or lesions noted. Course - Re-evaluation Re-evalutation: 06/04/19 88-year-old male with history of Parkinson's presents with fall yesterday with pain to the left ribs. Patient denies any head injury or LOC. Patient has been seen multiple times in the past couple weeks for falls due to Parkinson's. Son states that he and his sister trade-off staying with patient. Patient was seen by physician in [place] and son states they are hoping to get patient in to a long-term facility and are currently working with primary care physician to hopefully get this done. Vital signs acceptable. Tenderness to left anterior lower ribs. No contusion noted. Abdomen soft, nontender. RRR. Lungs clear to auscultation bilaterally. No spinal tenderness. PE is otherwise unremarkable. Rib series with CXR ordered. 06/04/19 12:01 X-ray shows 8th left rib fracture. Discussed findings with pt and pt's son. Pt's son also spoke to pediatric social worker here to help with placement. Pt to be discharged home with spirometry and pain control and close follow up with PCP. Pt's son also given x-ray report. Return precautions given. All questions/concerns addressed prior to discharge. - Vital Signs Vital signs: Temp Pulse Resp BP Pulse Ox 59 L 18 102/57 L 97 06/04/19 10:18 06/04/19 10:18 06/04/19 10:18 06/04/19 10:18 Discharge - Discharge Clinical Impression: Rib fracture Qualifiers: Encounter type: initial encounter Rib fracture type: single rib Fracture type: closed Laterality: left Qualified Code(s): S22.32XA - Fracture of one rib, left side, initial encounter for closed fracture Condition: Stable Disposition: HOME, SELF-CARE Instructions: Rib Injuries and Fractures ([facility]) Additional Instructions: Please use incentive spirometry as discussed. Please take pain medicine as prescribed. It may make you drowsy. Please follow-up with your primary care doctor in 2 to 3 days. Please return to ER if he start having any difficulty breathing, increasing pain, increased falls, fevers, cough or any concerning symptoms. Prescriptions: Oxycodone HCl/Acetaminophen [Percocet 5-325 mg Tablet] 1 - 2 tab PO Q8 #15 tablet Referrals: NAOMI DURAN MD [Primary Care Provider] - Follow up in 3-5 days
--- NOTE | 2019-06-04 11:14 | RADIOLOGY REPORT (SQ) ---
EXAM DESCRIPTION: RIBS LEFT W/PA CHEST COMPLETED DATE/TIME: 06/04/2019 10:57 am REASON FOR STUDY: fall, left rib pain COMPARISON: None. TECHNIQUE: Frontal view of the chest and additional views of the left ribs acquired. NUMBER OF VIEWS: Three view. LIMITATIONS: None. FINDINGS: FRONTAL CXR: No pneumothorax. Blunting of the bilateral costophrenic angles possibly smal l bilateral effusions versus pleural thickening. No focal consolidation. RIBS: Minimally displaced anterolateral left 8th rib fracture. OTHER: No other significant finding. IMPRESSION: Minimally displaced left anterolateral rib fracture. No pneumothorax. Blunting of the bilateral costophrenic angles, possibly trace effusions versus pleural thickening. COMMENT: SITE OF TRAUMA/COMPLAINT MARKED/STAMP COMPLETED: NO. TECHNICAL DOCUMENTATION: JOB ID: [id number] [employer]- All Rights Reserved Reading location - IP/workstation name: [email or web address]
== END 2019-06-04 12:26 | disposition home or self-care (01) ==
LOC: ER 10:09
DX: S22.32XA Fracture of one rib, left side, initial encounter for closed fracture (principal); R07.81 Pleurodynia; G20 Parkinson's disease; W18.30XA Fall on same level, unspecified, initial encounter; E78.00 Pure hypercholesterolemia, unspecified; I10 Essential (primary) hypertension; Z88.0 Allergy status to penicillin
CPT/HCPCS: 99283; 71101; A9270

== ENCOUNTER 2019-07-08 17:20 | Emergency (ER) | payer MEDICARE, OTHER ==
--- NOTE | 2019-07-08 18:42 | ER Document Report ---
ED Medical Screen (RME) - General Chief Complaint: Feet Swelling Stated Complaint: LEG SWELLING AND DRAINAGE Time Seen by Provider: 07/08/19 18:32 Primary Care Provider: NAOMI DURAN MD [Primary Care Provider] - Follow up as needed Mode of Arrival: Wheelchair Information source: Patient, Relative Notes: 89-year-old male with history of Parkinson's presents to the emergency department with complaints of bilateral leg swelling. Reports he has had ankle swelling but the right leg started swelling to 4+ pitting today as well as the left lower leg. Patient smokes 2 packs of cigarettes a day. Denies history of CHF. Denies shortness of breath. Denies chest pain. His son reports patient has been standing a lot working on his car outside. Home health nurse visited him today and contact his son reported that he needed to bring him to the emergency department immediately because of the swelling to his legs and elevated heart rate. I have greeted and performed a rapid initial assessment of this patient. A comprehensive ED assessment and evaluation of the patient, analysis of test results and completion of the medical decision making process will be conducted by additional ED providers. TRAVEL OUTSIDE OF THE [place] IN LAST 30 DAYS: No - Related Data Allergies/Adverse Reactions: Penicillins Allergy (Verified 07/08/19 18:35) Past Medical History - Past Medical History Cardiac Medical History: Reports: Hx Hypercholesterolemia, Hx Hypertension Renal/ Medical History: Reports: Hx Benign Prostatic Hyperplasia. Denies: Hx Peritoneal Dialysis, Hx Renal Insufficiency Musculoskeltal Medical History: Reports Hx Arthritis Physical Exam - Vital signs Vitals: Temp Pulse Resp BP Pulse Ox 97.8 F 120 H 16 118/95 H 98 07/08/19 18:18 07/08/19 18:18 07/08/19 18:18 07/08/19 18:18 07/08/19 18:18 Course - Vital Signs Vital signs: Temp Pulse Resp BP Pulse Ox 97.8 F 120 H 16 118/95 H 98 07/08/19 18:18 07/08/19 18:18 07/08/19 18:18 07/08/19 18:18 07/08/19 18:18 Doctor's Discharge - Discharge Referrals: NAOMI DURAN MD [Primary Care Provider] - Follow up as needed
--- NOTE | 2019-07-08 19:57 | RADIOLOGY REPORT (SQ) ---
EXAM DESCRIPTION: CHEST 2 VIEWS COMPLETED DATE/TIME: 07/08/2019 6:49 pm REASON FOR STUDY: legs swelling, ?chf COMPARISON: 06/01/2019 TECHNIQUE: Frontal and lateral radiographic views of the chest acquired. NUMBER OF VIEWS: Two view. LIMITATIONS: None. FINDINGS: LUNGS AND PLEURA: No pneumothorax. No consolidation. Trace left pleural effusion. MEDIASTINUM AND HILAR STRUCTURES: Stable. HEART AND VASCULAR STRUCTURES: Stable. BONES: No acute findings. HARDWARE: None in the chest. OTHER: No other significant finding. IMPRESSION: No consolidation. Trace left pleural effusion. TECHNICAL DOCUMENTATION: JOB ID: [id number] 2010 [employer]- All Rights Reserved Reading location - IP/workstation name: [email or web address]
[2019-07-08 20:13] LABS: ABSOLUTE EOSINOPHILS # (AUTO) 0.1 10^3/uL (0.0-0.6); ABSOLUTE LYMPHOCYTES (AUTO) 0.7 10^3/uL (0.5-4.7); ABSOLUTE MONOCYTES (AUTO) 0.4 10^3/uL (0.1-1.4); ABSOLUTE NEUT (AUTO) 4.9 10^3/uL (1.7-8.2); BASOPHILS % (AUTO) 0.8 % (0-2); EOSINOPHILS % (AUTO) 1.7 % (0-6); HEMATOCRIT 36.3 % (37.9-51.0); HEMOGLOBIN 12.3 g/dL (13.5-17.0); LYMPHOCYTES % (AUTO) 12.1 % (13-45); MEAN CORPUSCULAR HEMOGLOBIN 32.3 pg (27.0-33.4); MEAN CORPUSCULAR HGB CONC 33.8 g/dL (32.0-36.0); MEAN CORPUSCULAR VOLUME 96 fl (80-97); MONOCYTES % (AUTO) 6.2 % (3-13); PLATELET COUNT 209 10^3/uL (150-450); RED BLOOD COUNT 3.79 10^6/uL (4.35-5.55); RED CELL DISTRIBUTION WIDTH 14.9 % (11.5-14.0); SEGMENTED NEUTROPHILS % (AUTO) 79.2 % (42-78); TOTAL CELLS COUNTED % (AUTO) 100 %; WHITE BLOOD COUNT 6.1 10^3/uL (4.0-10.5)
[2019-07-08 20:29] LABS: APPEARANCE,URINE CLEAR; BILIRUBIN,URINE NEGATIVE (NEGATIVE); COLOR,URINE YELLOW; GLUCOSE, URINE NEGATIVE (NEGATIVE); KETONES,URINE TRACE mg/dL (NEGATIVE); LEUKOCYTE ESTERASE,URINE NEGATIVE (NEGATIVE); NITRITE,URINE NEGATIVE (NEGATIVE); PROTEIN,URINE 30 mg/dL (NEGATIVE); URINE SPECIFIC GRAVITY 1.018; UROBILINOGEN,URINE NEGATIVE mg/dL (<2.0)
[2019-07-08 20:46] LABS: ALBUMIN 3.6 g/dL (3.5-5.0); ALKALINE PHOSPHATASE 74 U/L (38-126); ANION GAP 11 (5-19); ASPARTATE AMINO TRANSFERASE 18 U/L (17-59); BILIRUBIN,DIRECT 0.3 mg/dL (0.0-0.4); BILIRUBIN,TOTAL 0.6 mg/dL (0.2-1.3); BLOOD UREA NITROGEN 29 mg/dL (7-20); CALCIUM 9.1 mg/dL (8.4-10.2); CARBON DIOXIDE 27 mmol/L (22-30); CHLORIDE 101 mmol/L (98-107); GLUCOSE 87 mg/dL (75-110); POTASSIUM 4.6 mmol/L (3.6-5.0); TOTAL PROTEIN 6.4 g/dL (6.3-8.2)
[2019-07-08 20:48] VITALS: BP 124/90
--- NOTE | 2019-07-08 22:03 | EKG REPORT ---
SEVERITY:- ABNORMAL ECG - SINUS TACHYCARDIA VS ATRIAL FLUTTER RIGHT BUNDLE BRANCH BLOCK : Confirmed by: James Kaur MD 08-Jul-2019 22:03:17
== END 2019-07-09 02:08 | disposition left against medical advice (07) ==
LOC: ER 17:20
DX: M79.89 Other specified soft tissue disorders (principal); F17.210 Nicotine dependence, cigarettes, uncomplicated; M25.473 Effusion, unspecified ankle; G20 Parkinson's disease; I10 Essential (primary) hypertension; Z88.0 Allergy status to penicillin; Z53.20 Procedure and treatment not carried out because of patient's decision for unspecified reasons
CPT/HCPCS: 36415; 71046; 80053; 81001; 85025; 93005; 93010; 99281

== ENCOUNTER → 2020-01-02 | Outpatient (CLI) | payer MEDICARE, OTHER ==
[2020-01-02 13:00] LABS: ABSOLUTE EOSINOPHILS # (AUTO) 0.2 10^3/uL (0.0-0.6); ABSOLUTE LYMPHOCYTES (AUTO) 0.7 10^3/uL (0.5-4.7); ABSOLUTE MONOCYTES (AUTO) 0.4 10^3/uL (0.1-1.4); ABSOLUTE NEUT (AUTO) 5.2 10^3/uL (1.7-8.2); BASOPHILS % (AUTO) 0.5 % (0-2); EOSINOPHILS % (AUTO) 3.2 % (0-6); HEMATOCRIT 37.4 % (37.9-51.0); HEMOGLOBIN 12.5 g/dL (13.5-17.0); LYMPHOCYTES % (AUTO) 10.9 % (13-45); MEAN CORPUSCULAR HEMOGLOBIN 31.5 pg (27.0-33.4); MEAN CORPUSCULAR HGB CONC 33.4 g/dL (32.0-36.0); MEAN CORPUSCULAR VOLUME 94 fl (80-97); MONOCYTES % (AUTO) 6.7 % (3-13); PLATELET COUNT 220 10^3/uL (150-450); RED BLOOD COUNT 3.97 10^6/uL (4.35-5.55); RED CELL DISTRIBUTION WIDTH 14.3 % (11.5-14.0); SEGMENTED NEUTROPHILS % (AUTO) 78.7 % (42-78); TOTAL CELLS COUNTED % (AUTO) 100 %; WHITE BLOOD COUNT 6.6 10^3/uL (4.0-10.5)
[2020-01-02 13:27] LABS: ALBUMIN 3.9 g/dL (3.5-5.0); ALKALINE PHOSPHATASE 88 U/L (38-126); ANION GAP 7 (5-19); ASPARTATE AMINO TRANSFERASE 17 U/L (17-59); BILIRUBIN,DIRECT 0.1 mg/dL (0.0-0.4); BILIRUBIN,TOTAL 0.4 mg/dL (0.2-1.3); BLOOD UREA NITROGEN 26 mg/dL (7-20); CARBON DIOXIDE 29 mmol/L (22-30); CHLORIDE 103 mmol/L (98-107); GLUCOSE 93 mg/dL (75-110); POTASSIUM 4.8 mmol/L (3.6-5.0); TOTAL PROTEIN 6.9 g/dL (6.3-8.2)
[2020-01-02 13:37] LABS: C-REACTIVE PROTEIN 16.9 mg/L (<10.0)
[2020-01-02 13:43] LABS: ERYTHROCYTE SEDIMENTATION RATE 38 mm/hr (0-20)
--- NOTE | 2020-01-03 08:30 | RADIOLOGY REPORT (SQ) ---
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 TECHNIQUE: Multiple real-time grayscale sonographic images were obtained for evaluation of the right and left lower extremity. Doppler and duplex evaluation of the venous structures was performed. LIMITATIONS: None. FINDINGS: The right and left common femoral, superficial femoral, popliteal and infrapopliteal veins are patent with normal response to compression and augmentation maneuvers. Reflux noted within the right femoral vein distally measuring 1.4 seconds. Additional reflux noted within the right poplitea l vein measuring up to 1.4 seconds. Right greater saphenous vein: Negative for reflux. Greater saphenous vein measures 6 mm. Right small saphenous vein: Negative for reflux. Left greater saphenous vein: Negative for reflux. Greater saphenous vein measures up to 3.5 mm. Left small saphenous vein: Negative for reflux. OTHER: No solid or cystic masses noted. Subcutaneous edema within the right lower extremity. IMPRESSION: 1. No evidence of DVT or SVT in either lower extremity. 2. Deep venous reflux noted within the distal right femoral and popliteal veins measuring up to 1.4 seconds. 3. Minimally dilated right greater saphenous vein. No superficial venous reflux appreciated on alon y's exam. TECHNICAL DOCUMENTATION: JOB ID: [id number] 2010 [employer]- All Rights Reserved Reading location - IP/workstation name: [email or web address]
--- NOTE | 2020-01-03 12:57 | RADIOLOGY REPORT (SQ) ---
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 TECHNIQUE: Dynamic and static acosta scale and color images acquired of the lower extremity arteries. Additional selected spectral images recorded. ABIs recorded. LIMITATIONS: None. FINDINGS: RIGHT LEG: ABIS: Noncompressible which limits evaluation. INFLOW ARTERIES: Biphasic inflow with scattered plaque. FEMORAL ARTERIES:Common femoral artery is patent with biphasic waveform. Profunda origin is patent w ith elevated velocities measuring up to 518 cm/sec suggestive of greater greater than 75 percent sten osis. Common femoral artery is occluded at the proximal and mid aspect with reconstitution distally, similar to prior. No aneurysm. POPLITEAL ARTERY:Popliteal demonstrates biphasic waveform without focal stenosis.. No aneurysm. PATENT TIBIOPERONEAL TRUNK AND 3 VESSEL RUNOFF: Posterior tibial artery is patent. Peroneal is not i torsten. Anterior tibial artery is patent without focal stenosis. Dorsalis pedis demonstrates monopha sic waveform. TBI: Not performed. OTHER: Avascular mass at the medial right knee measuring 4.0 x 4.0 x 1.0 cm LEFT LEG: ABIS: Noncompressible which limits evaluation. INFLOW ARTERIES: Triphasic inflow. FEMORAL ARTERIES:Patent common femoral artery with triphasic waveform and without high-grade stenosis . Profunda origin demonstrates patency. Superficial femoral artery is patent proximally with biphas ic flow. There is occlusion distally with collaterals noted, similar to prior. POPLITEAL ARTERY:Reconstitution via profunda collaterals. Biphasic waveform. No high-grade stenosis .. No aneurysm. PATENT TIBIOPERONEAL TRUNK AND 3 VESSEL RUNOFF: Posterior tibial artery is patent with monophasic wav eform. Peroneal not evaluated. Anterior tibial artery demonstrates patency monophasic waveform. No high-grade stenosis. TBI: Not performed. OTHER: No other significant finding. IMPRESSION: RIGHT: 1. Unable to calculate ABIs secondary to vessel calcification. Right lower extremity demonstrates o ccluded proximal SFA with distal reconstitution via profunda collaterals, similar to prior. 2. Greater than 75 % stenosis at the proximal profunda origin. Tibial disease as above. 3. Partially evaluated avascular lesion on leaving the medial right knee measuring 4.0 x 4.0 x 1.0, possibly popliteal cyst. LEFT: 1. Multiphasic inflow. Unable to calculate ABIs secondary to vessel calcification. 2. Occluded distal SFA with popliteal reconstitution via collaterals, similar to prior. COMMENT: [facility] NORMAL: Greater than 1.0 MINIMAL DISEASE: 0.9 to 1.0 CLAUDICATION: 0.5 to 0.9 SEVERE ARTERIAL DISEASE: Less than 0.5 [facility] NORMAL: Greater than 1.0 (1.2 If Heavy Calcifications) NORMAL TO MILD ISCHEMIA: 0.8 to 1.0 MODERATE ISCHEMIA: 0.4 to 0.8 SEVERE ISCHEMIA: Less than 0.4 TECHNICAL DOCUMENTATION: JOB ID: [id number] 2010 [employer]- All Rights Reserved Reading location - IP/workstation name: [email or web address]
== END ==
LOC: SP 12:34
PROVIDERS: ATTEND Nurse Practitioner Family
DX: L97.212 Non-pressure chronic ulcer of right calf with fat layer exposed (principal)
CPT/HCPCS: 36415; 80053; 85025; 85652; 86140; 93922; 93925; 93970

== ENCOUNTER 2020-06-10 10:06 | Day surgery (SDC) | payer MEDICARE, OTHER ==
[~2020-06-10 10:06] MED LIST: CHONDR SU A NA/HYALUR INTRAOC KIT (SURGICARE) ONE; EPINEPHRINE INJ/PF 1 MG/1 ML AMPULE ONE; KETOROLAC TROMETHAMINE 0.45% 4 DROP/0.4 ML DROPERETTE OS PRN; LIDOCAINE 1%/PHENYLEPHRINE 1.5% 1 ML VIAL ONE; MIDAZOLAM 2 MG/2 ML INJ ONE
[2020-06-10] MEDS: TETRACAINE HCL 0.5% OPH SOLN 4 ML OS PRN ×3 (11:48→12:20)
[2020-06-10] MEDS: CYCLOPENTOLATE 0.2%/PHENYLEPHRINE 1% OPH SOLN 2 ML OS PRN ×3 (11:49→12:10)
[2020-06-10] MEDS: BESIFLOXACIN HCL 0.6% OPH SUSP 5 ML BOTTLE OS PRN ×4 (11:49→12:46)
[2020-06-10] MEDS: TROPICAMIDE 1% OPH SOLN 15 ML OS PRN ×3 (11:49→12:10)
[2020-06-10] MEDS: PREDNISOLONE ACETATE 1% OPH SUSP 5 ML OS PRN ×2 (12:33→12:46)
[2020-06-10] MEDS: DORZOLAMIDE HCL 2%/TIMOLOL MALEAT 0.5% OPH SOLN 10 ML OS PRN ×2 (12:33→12:46)
--- NOTE | 2020-06-10 16:38 | Operative Report ---
Operative Report-[facility] Operative Report: DATE OF SURGERY: June 10, 2020 PREOPERATIVE DIAGNOSIS: NUCLEAR CATARACT, LEFT EYE. Miosis POSTOPERATIVE DIAGNOSIS: NUCLEAR CATARACT, LEFT EYE. Miosis PROCEDURE PERFORMED: PHACOEMULSIFICATION WITH POSTERIOR CHAMBER INTRAOCULAR LENS IMPLANT, LEFT EYE. Complex SURGEON: Gregor Roa DO MEDICATIONS AND ANESTHESIA: Versed: IV Versed Tetracaine drops: 1 to 2 drops given as needed COMPLICATION: [None] INDICATIONS FOR SURGERY: Medical necessity: Best corrected visual acuity worse than 20/40 secondary to cataracts with impairment of ability to carry out needs or desired activities, blurred vision, visual distortion, reduced contrast sensitivity and/or glare with association functional impairment and supporting documentation/testing, and cataracts causing symptomatic impairment of visual functions not corrected with tolerable changes in glasses or contact lenses interfering with activities of daily life. PROCEDURE: Consent: The risks, benefits and alternatives of this procedures was discussed with the patient. The patient read and signed the consent forms, was identified and was seated in the exam chair. IOL: [MX 60 E 23.0] IOL Diopters: [] Phacoemulsification with posterior chamber intraocular lens implant: The face was prepped with 5% povidone iodine solution, and a few drops of 5% povidone iodine solution was instilled into the inferior fornix. A non-fenestrated drape was placed over the eye and the lids were parted with the speculum. A paracentesis was made with a 15 degree blade, and 1% lidocaine MPF followed by viscoelastic was injected into the anterior chamber. A 2.4 mm metal micro- keratome was used to create a temporal clear corneal incision. A circular anterior capsulorrhexis was created, followed by hydro-dissection and hydro- delineation. The phacoemulsification hand piece was inserted and the nucleus was removed with the Phaco chop technique. The irrigation-aspiration hand piece was used to remove the residual cortex, and vacuum the posterior capsule. The capsular bag was inflated and viscoelastic and the above-mentioned IOL was injected into the eye with care to insert both leaning and trailing haptics in the capsular bag. The irrigation/aspiration hand piece was reinserted to remove residual viscoelastic from the capsular bag and anterior chamber. The corneal incision was hydrated, and anterior chamber was inflated with sterile BSS via the paracentesis site, and found to be watertight. In addition a ring was used to expand the pupil during the case due to miosis, the ring was removed at the end of the case. Postop medication:1 drop of prednisolone into operative by followed by 1 drop of Cosopt into operative eye followed by 1 drop of Besivance intraoperative by Other: []
== END 2020-06-10 13:20 | disposition home or self-care (01) ==
LOC: SC 10:06
PROVIDERS: ATTEND Ophthalmology
DX: H25.12 Age-related nuclear cataract, left eye (principal); H57.03 Miosis; F17.210 Nicotine dependence, cigarettes, uncomplicated; I10 Essential (primary) hypertension; J45.909 Unspecified asthma, uncomplicated; M06.9 Rheumatoid arthritis, unspecified
CPT/HCPCS: 66982; V2632; J2250; J3490 ×2; A9270; J0171; 142

== ENCOUNTER 2020-06-24 10:06 | Day surgery (SDC) | payer MEDICARE, OTHER ==
[~2020-06-24 10:06] MED LIST changes: +KETOROLAC TROMETHAMINE 0.45% 4 DROP/0.4 ML DROPERETTE OD PRN; -KETOROLAC TROMETHAMINE 0.45% 4 DROP/0.4 ML DROPERETTE OS PRN; -MIDAZOLAM 2 MG/2 ML INJ ONE
[2020-06-24] MEDS: TROPICAMIDE 1% OPH SOLN 15 ML OD PRN ×3 (10:42→11:02)
[2020-06-24] MEDS: BESIFLOXACIN HCL 0.6% OPH SUSP 5 ML BOTTLE OD PRN ×4 (10:42→11:48)
[2020-06-24] MEDS: CYCLOPENTOLATE 0.2%/PHENYLEPHRINE 1% OPH SOLN 2 ML OD PRN ×3 (10:42→11:02)
[2020-06-24] MEDS: TETRACAINE HCL 0.5% OPH SOLN 4 ML OD PRN ×3 (10:42→11:20)
[2020-06-24] MEDS ORDERED: FENTANYL CITRATE INJ/PF 100 MCG/2 ML AMPUL ONE (11:13)
[2020-06-24] MEDS ORDERED: ONDANSETRON HCL INJ/PF 4 MG/2 ML SDV ONE (11:13)
[2020-06-24] MEDS ORDERED: MIDAZOLAM 2 MG/2 ML INJ ONE (11:13)
[2020-06-24] MEDS: DORZOLAMIDE HCL 2%/TIMOLOL MALEAT 0.5% OPH SOLN 10 ML OD PRN ×2 (11:48)
[2020-06-24] MEDS: PREDNISOLONE ACETATE 1% OPH SUSP 5 ML OD PRN ×2 (11:48)
--- NOTE | 2020-06-24 16:11 | Operative Report ---
Operative Report-[facility] Operative Report: DATE OF SURGERY: June 24, 2020 PREOPERATIVE DIAGNOSIS: NUCLEAR CATARACT, RIGHT EYE. With myopia POSTOPERATIVE DIAGNOSIS: NUCLEAR CATARACT, RIGHT EYE. Myopia PROCEDURE PERFORMED: PHACOEMULSIFICATION WITH POSTERIOR CHAMBER INTRAOCULAR LENS IMPLANT, RIGHT EYE. Complex SURGEON: Gregor Roa, MEDICATIONS AND ANESTHESIA: Versed: IV Versed Tetracaine drops: 1 to 2 drops given as needed COMPLICATION: [None] INDICATIONS FOR SURGERY: Medical necessity: Best corrected visual acuity worse than 20/40 secondary to cataracts with impairment of ability to carry out needs or desired activities, blurred vision, visual distortion, reduced contrast sensitivity and/or glare with association functional impairment and supporting documentation/testing, and cataracts causing symptomatic impairment of visual functions not corrected with tolerable changes in glasses or contact lenses interfering with activities of daily life. PROCEDURE: Consent: The risks, benefits and alternatives of this procedures was discussed with the patient. The patient read and signed the consent forms, was identified and was seated in the exam chair. IOL: [MX 60 E 23.5] IOL Diopters: [] Phacoemulsification with posterior chamber intraocular lens implant: The face was prepped with 5% povidone iodine solution, and a few drops of 5% povidone iodine solution was instilled into the inferior fornix. A non-fenestrated drape was placed over the eye and the lids were parted with the speculum. A paracentesis was made with a 15 degree blade, and 1% lidocaine MPF followed by viscoelastic was injected into the anterior chamber. A 2.4 mm metal micro- keratome was used to create a temporal clear corneal incision. A circular an terior capsulorrhexis was created, followed by hydro-dissection and hydro- delineation. The phacoemulsification hand piece was inserted and the nucleus was removed with the Phaco chop technique. The irrigation-aspiration hand piece was used to remove the residual cortex, and vacuum the posterior capsule. The capsular bag was inflated and viscoelastic and the above-mentioned IOL was injected into the eye with care to insert both leaning and trailing haptics in the capsular bag. The irrigation/aspiration hand piece was reinserted to remove residual viscoelastic from the capsular bag and anterior chamber. The corneal incision was hydrated, and anterior chamber was inflated with sterile BSS via the paracentesis site, and found to be watertight. In addition a ring was used to expand the pupil during the case. The ring was then removed at the end of the case making this complex. Postop medication: 1 drop of prednisolone into operative by followed by 1 drop of Cosopt into operative eye followed by 1 drop of Besivance intraoperative by other: []
== END 2020-06-24 12:26 | disposition home or self-care (01) ==
LOC: SC 10:06
PROVIDERS: ATTEND Ophthalmology
DX: H25.11 Age-related nuclear cataract, right eye (principal); Z98.42 Cataract extraction status, left eye; M19.90 Unspecified osteoarthritis, unspecified site; I10 Essential (primary) hypertension; E78.00 Pure hypercholesterolemia, unspecified; H52.11 Myopia, right eye; F17.210 Nicotine dependence, cigarettes, uncomplicated; G20 Parkinson's disease
CPT/HCPCS: 66982; V2632; J2250; J3490 ×2; A9270; J0171; J2405; J3010